=== PATIENT | female | born 1960 | race Caucasian/White ===

== ENCOUNTER 2017-06-02 16:19 | Emergency (ER) | payer SELFPAY ==
[2017-06-02] MEDS ORDERED: METHYLPREDNISOLONE PF 125MG/VIAL IVP ONE (16:44)
[2017-06-02] MEDS ORDERED: ALBUTEROL SULFATE (0.083%) 2.5 MG/3 ML NEB INH ONE ×2 (16:44→18:04)
[2017-06-02] MEDS ORDERED: IPRATROPIUM/ALBUTEROL (0.5MG/3MG) NEB INH ONE (16:44)
--- NOTE | 2017-06-02 16:49 | Emergency Department Record ---
History of Present Illness - General Chief Complaint: Difficulty Breathing Stated Complaint: ARNALDO AND HURNIA Time Seen by Provider: 06/02/17 16:39 Source: Patient Mode of Arrival: Wheelchair Limitations: No limitations - History of Present Illness Initial Comments: The patient is here due to having trouble breathing for about a month. She has been on multiple Abx's over that time with no improvement. Now the ARNALDO did worsen yesterday and she did develop a fever so she decided to come to the ER. She denies any CP except with coughing and also has had some sputum production. She was admitted to [facility] 6 weeks ago for a similar issue. Additionally she is having pain over her large abdominal wall hernia. MD Complaint: Cough, Shortness of breath Onset/Timin -: Days(s) Severity: Moderate Severity scale (1-10): 7 Quality: Aching Consistency: Constant Improves With: Nothing Known History Of: Asthma - Related Data Home Oxygen Therapy: No Home Medications Medication Instructions Recorded Confirmed Last Taken Albuterol Sulfate [Proair Hfa] 1 - 2 puff IH .EVERY 4-6 HOURS PRN 06/02/1706/0206/02/17 Allergies Allergy/AdvReac Type Severity Reaction Status Date / Time nabumetone [From RELAFEN] Allergy Unknown PT UNSURE Verified 06/02/17 16:35 OF REACTION Travel Screening - Travel/Exposure Within Last 30 Days Have you traveled within the last 30 days?: No - Travel/Exposure Within Last Year Have you traveled outside the [place] in the last year?: No - Additonal Travel Details Have you been exposed to anyone with a communicable illness?: No - Travel Symptoms Symptom Screening: None Review of Systems Constitutional: Reports: Fever, Malaise. Denies: Chills Eyes: Denies: Eye discharge ENT: Reports: Congestion Respiratory: Reports: Cough, Dyspnea. Denies: Hemoptysis Past Medical History - SOCIAL HISTORY Smoking Status: Current every day smoker Alcohol Use: None Drug Use: None - RESPIRATORY Hx Respiratory Disorders: Yes Hx Asthma: Yes Hx COPD: Yes - CARDIOVASCULAR Hx Cardio Disorders: Yes Hx Hypertension: Yes Hx Irregular Heartbeat: Yes Hx Palpitations: Yes - NEURO Hx Neuro Disorders: Yes Hx Neuropathy: Yes - GI Hx GI Disorders: Yes Comment:: large hernia - Hx Genitourinary Disorders: No - ENDOCRINE Hx Endocrine Disorders: Yes Hx Diabetes: No (pre-diabetic) - MUSCULOSKELETAL Hx Musculoskeletal Disorders: No - PSYCH Hx Psych Problems: Yes Hx Depression: Yes - HEMATOLOGY/ONCOLOGY Hx Hematology/Oncology Disorders: No Family Medical History Any Significant Family History?: Yes Hx Diabetes: Father, Mother, Grandparents Physical Exam - General General Appearance: Alert, Oriented x3, Cooperative, Mild distress - Head Head exam: Atraumatic, Normocephalic - Eye Eye exam: Normal appearance, PERRL - ENT Throat exam: Normal inspection. negative: Tonsillar erythema, Tonsillar exudate - Neck Neck exam: Normal inspection, Full ROM. negative: Tenderness - Respiratory Respiratory exam: Respiratory distress (mild.), Rhonchi, Wheezes. negative: Normal lung sounds bilaterally - Cardiovascular Cardiovascular Exam: Regular rate, Normal rhythm, Normal heart sounds - GI/Abdominal GI/Abdominal exam: Soft, Normal bowel sounds, Distended, Hernia (There is mild tenderness over her previous hernia.), Tenderness (mild over the chronic hernia. ). negative: Guarding, Rigid - Extremities Extremities exam: Normal inspection, Full ROM, Normal capillary refill. negative: Tenderness Course Vital Signs 06/02/17 16:22 Temperature 99.6 F Pulse Rate 78 Respiratory 28 H Rate Blood Pressure 173/87 Pulse Ox 82 L - Reevaluation(s) Reevaluation #1: The patient is doing better at this time. She is still having significant wheezing on exam but her aeration is improved. I did explain to her that I am concerned about her breathing and believe she needs to be admitted to the hospital. Due to the fact she has significant COPD and also a possible incarcerated abdominal wall hernia I also believe she will need to see General Surgery which we do not have here at [facility]. The patient is requesting to go to [facility]. I did discuss the case with Dr. Simmons who is the attending physician [employer] [facility] for [facility] and he does accept the patient to the hospital. 06/02/17 17:47 Medical Decision Making - Data Complexity MDM Data: Labs Ordered and/or Reviewed, X-Ray Ordered and/or Reviewed - Lab Data Result diagrams: 06/02/17 16:44 06/02/17 16:47 - Radiology Data Radiology results: Report reviewed (CXR: COPD with possible infiltrates lower lobes vs atelectasis.) Disposition Disposition: Transfer Clinical Impression: COPD exacerbation Disposition: Acute Care Hospital Transfer Transfer To: [facility] Reason For Transfer: COPD Accepting Physician: Troy Time Discussed w/Accepting Physician: 17:51 Condition: (2) Stable Forms: Patient Portal Access Time of Disposition: 17:51 Quality - Quality Measures Quality Measures: N/A - Blood Pressure Screening View Details: Yes Does Patient Have Any of the Following: No Blood Pressure Classification: Pre-Hypertensive BP Reading Systolic Measurement: 173 Diastolic Measurement: 87 Screening for High Blood Pressure: < Pre-Hypertensive BP, F/U Documented > [ G8950] Pre-Hypertensive Follow-up Interventions: Referral to alternative/primary care provider.
[2017-06-02 16:55] LABS: BASO % 0.2 % (0-6); HEMATOCRIT 51.6 % (35.0-47.0); HEMOGLOBIN 16.6 gm/dl (11.6-16.0); LYMPH % 9.7 % (16-45); MEAN CELL VOLUME 97.2 fl (81-97); MEAN CORPUSCULAR HEMOGLOBIN 31.2 pg (27-33); MEAN CORPUSCULAR HGB CONC 32.2 g/dl (32-36); MEAN PLATELET VOLUME 9.9 fl (7.4-10.4); MONO % 1.9 % (0-9); PLATELET COUNT 287 K/uL (130-400); RED BLOOD COUNT 5.31 M/uL (3.80-5.40); RED CELL DISTRIBUTION WIDTH 14.6 % (11.5-14.5); WHITE BLOOD COUNT W/O DIFF 12.3 K/uL (4.2-12.2)
[2017-06-02 17:10] LABS: BLOOD UREA NITROGEN 9 mg/dL (6-20); CREATININE 0.7 mg/dL (0.5-0.9); EST GLOMERULAR FILTRATION RATE > 60 mL/min
[2017-06-02 17:13] LABS: GLUCOSE,RANDOM 295 mg/dL (74-109)
[2017-06-02] MEDS ORDERED: LEVOFLOXACIN 500MG IVPB 500 MG/100 ML BAG IVPB ONE (17:43)
[2017-06-02] MEDS ORDERED: LEVOFLOXACIN 500MG IVPB 500 MG/100 ML BAG IVPB SCH (17:45)
--- NOTE | 2017-06-02 22:12 | RADIOLOGY REPORT ---
EXAM: CHEST 2 VIEWS HISTORY: DIFFICULTY IN BREATHING FOR TWO DAYS. SMOKING HISTORY. COPD. TECHNIQUE: Upright PA and lateral views of the chest. COMPARISON: None. FINDINGS: The heart is not enlarged. No gross pulmonary venous hypertension is seen. There is questionable mild reticular opacity prominence in the lower lungs , likely relating to chronic interstitial change rather than a more acute process, such as edema or interstitial pneumonitis. No lung consolidation, costophrenic angle blunting, or pneumothorax. The lungs are hyperinflated consistent with COPD. Mild degenerative changes are scattered within the visualized spine. IMPRESSION: 1. HYPERINFLATION OF THE LUNGS CONSISTENT WITH COPD. 2. MILD RETICULAR OPACITY PROMINENCE IN THE LOWER LUNGS QUESTIONED, DISCUSSED ABOVE. JOB NUMBER: [id number] MTDD
== END 2017-06-02 19:19 | disposition short-term general hospital (02) ==
LOC: ER 16:19
DX: J44.1 Chronic obstructive pulmonary disease with (acute) exacerbation (principal); K43.2 Incisional hernia without obstruction or gangrene; R06.02 Shortness of breath; I10 Essential (primary) hypertension; F17.210 Nicotine dependence, cigarettes, uncomplicated
CPT/HCPCS: 71020; 80048; 85027; 94640; 96365; 96375; 99285; J1956; J2930; J7613

== ENCOUNTER 2018-10-26 13:30 | Emergency (ER) | payer MEDICAID ==
[2018-10-26 14:14] LABS: URINE APPEARANCE CLOUDY; URINE BILIRUBIN NEGATIVE (NEGATIVE); URINE BLOOD LARGE (NEGATIVE); URINE COLOR YELLOW; URINE KETONE NEGATIVE (NEGATIVE); URINE LEUKOCYTE ESTERASE LARGE (NEGATIVE); URINE NITRITE NEGATIVE (NEGATIVE); URINE UROBILINOGEN 0.2 E.U./dL (0.20 - 1.00)
[2018-10-26 14:23] LABS: URINE BACTERIA NONE SEEN; URINE EPITHELIAL CELLS 0 - 2 (FEW); URINE RBC 16 - 25 (NONE SEEN)
--- NOTE | 2018-10-26 16:05 | Emergency Department Record ---
History of Present Illness - General Chief complaint: Female Urogenital Problem Stated complaint: POSSD UTI Time Seen by Provider: 10/26/18 16:01 Mode of Arrival: Ambulatory - History of Present Illness Onset/Timin -: Week(s) Location: Suprapubic Severity scale (1-10): 6 Quality: Aching, Burning Consistency: Constant Improves with: None Worsens with: None - Related Data Home Medications Medication Instructions Recorded Confirmed Last Taken Furosemide [Lasix] 20 mg PO DAILY 10/26/18 10/26/18 Unknown Lisinopril/Hydrochlorothiazide 1 tab PO DAILY 10/26/18 10/26/18 Unknown [Lisinopril-Hctz 10-12.5 mg Tab] Metformin HCl 500 mg PO DAILY 10/26/18 10/26/18 Unknown Pregabalin [Lyrica] 200 mg PO DAILY 10/26/18 10/26/18 Unknown Previous Rx's Medication Instructions Recorded Sulfamethoxazole/Trimethoprim 1 tab PO BID #20 tab 10/26/18 [Bactrim Ds] Allergies Allergy/AdvReac Type Severity Reaction Status Date / Time nabumetone [From RELAFEN] Allergy Unknown PT UNSURE Verified 10/26/18 13:40 OF REACTION Travel Screening - Travel/Exposure Within Last 30 Days Have you traveled within the last 30 days?: No Review of Systems Reviewed: No additional complaints except as noted below Constitutional: Reports: As per HPI. Denies: Chills, Fever, Malaise, Night sweats, Weakness, Weight change Eyes: Reports: As per HPI. Denies: Eye discharge, Eye pain, Photophobia, Vision change ENT: Reports: As per HPI. Denies: Congestion, Dental pain, Ear pain, Epistaxis , Hearing loss, Throat pain Respiratory: Reports: As per HPI. Denies: Cough, Dyspnea, Hemoptysis, Stridor, Wheezes Cardiovascular: Reports: As per HPI. Denies: Arrhythmia, Chest pain, Dyspnea on exertion, Edema, Murmurs, Orthopnea, Palpitations, Paroxysmal nocturnal dyspnea, Rheumatic Fever, Syncope Endocrine: Reports: As per HPI. Denies: Fatigue, Heat or cold intolerance, Polydipsia, Polyuria Gastrointestinal: Reports: As per HPI. Denies: Abdominal pain, Constipation, Diarrhea, Hematemesis, Hematochezia, Melena, Nausea, Vomiting Genitourinary: Reports: As per HPI, Dysuria, Frequency. Denies: Abnormal menses , Discharge, Dyspareunia, Hematuria, Incontinence, Retention, Urgency Musculoskeletal: Reports: As per HPI. Denies: Arthralgia, Back pain, Gout, Joint swelling, Myalgia, Neck pain Skin: Reports: As per HPI. Denies: Bruising, Change in color, Change in hair/ nails, Lesions, Pruritus, Rash Neurological: Reports: As per HPI. Denies: Abnormal gait, Confusion, Headache, Numbness, Paresthesias, Seizure, Tingling, Tremors, Vertigo, Weakness Psychiatric: Reports: As per HPI. Denies: Anxiety, Auditory hallucinations, Depression, Homicidal thoughts, Suicidal thoughts, Visual hallucinations Hematological/Lymphatic: Reports: As per HPI. Denies: Anemia, Blood Clots, Easy bleeding, Easy bruising, Swollen glands Past Medical History - SOCIAL HISTORY Smoking Status: Current every day smoker Alcohol Use: None Drug Use: None - RESPIRATORY Hx Respiratory Disorders: Yes Hx Asthma: Yes Hx COPD: Yes - CARDIOVASCULAR Hx Cardio Disorders: Yes Hx Hypertension: Yes Hx Irregular Heartbeat: Yes Hx Palpitations: Yes - NEURO Hx Neuro Disorders: Yes Hx Neuropathy: Yes - GI Hx GI Disorders: Yes Comment:: large hernia - Hx Genitourinary Disorders: No - ENDOCRINE Hx Endocrine Disorders: Yes Hx Diabetes: No (pre-diabetic) - MUSCULOSKELETAL Hx Musculoskeletal Disorders: No - PSYCH Hx Psych Problems: Yes Hx Depression: Yes - HEMATOLOGY/ONCOLOGY Hx Hematology/Oncology Disorders: No Family Medical History Any Significant Family History?: Yes Hx Diabetes: Father, Mother, Grandparents Physical Exam - General General Appearance: Alert, Oriented x3, Cooperative, No acute distress - Head Head exam: Normal inspection - Eye Eye exam: Normal appearance, PERRL Pupils: Normal accommodation - ENT ENT exam: Normal exam, Mucous membranes moist, Normal external ear exam, Normal orophraynx, TM's normal bilaterally Ear exam: Normal external inspection. negative: External canal tenderness Nasal Exam: Normal inspection. negative: Discharge, Sinus tenderness Mouth exam: Normal external inspection, Tongue normal Teeth exam: Normal inspection. negative: Dental caries Throat exam: Normal inspection. negative: Tonsillar erythema, Tonsillar exudate - Neck Neck exam: Normal inspection, Full ROM. negative: Tenderness - Respiratory Respiratory exam: Normal lung sounds bilaterally. negative: Respiratory distress - Cardiovascular Cardiovascular Exam: Regular rate, Normal rhythm, Normal heart sounds - GI/Abdominal GI/Abdominal exam: Soft, Normal bowel sounds. negative: Tenderness - Rectal Rectal exam: Deferred - exam: Deferred - Extremities Extremities exam: Normal inspection, Full ROM, Normal capillary refill. negative: Tenderness - Back Back exam: Reports: Normal inspection, Full ROM. Denies: Muscle spasm, Rash noted, Tenderness - Neurological Neurological exam: Alert, Normal gait, Oriented X3, Reflexes normal - Psychiatric Psychiatric exam: Normal affect, Normal mood - Skin Skin exam: Dry, Intact, Normal color, Warm Course Vital Signs 10/26/18 13:37 Temperature 97.7 F Pulse Rate 100 H Respiratory 20 Rate Blood Pressure 146/96 Pulse Ox 97 Medical Decision Making - Lab Data Lab Results 10/26/18 Range/Units 14:04 Urine Color Yellow Urine Appearance Cloudy Urine pH 6.0 (5.0-8.0) Ur Specific [place] 1.025 (1.002-1.030) Urine Protein 100 mg/dl H (NEGATIVE) Urine Glucose (UA) 500 mg/dl H (NEGATIVE) Urine Ketones Negative (NEGATIVE) Urine Blood Large H (NEGATIVE) Urine Nitrite Negative (NEGATIVE) Urine Bilirubin Negative (NEGATIVE) Urine Urobilinogen 0.2 (0.20 - 1.00) E.U./dL Ur Leukocyte Esterase Large H (NEGATIVE) Urine RBC 16 - 25 (NONE SEEN) Urine WBC Too numerous to cnt (0-2/hpf) Ur Epithelial Cells 0 - 2 (FEW) Urine Bacteria None seen Disposition Clinical Impression: UTI (urinary tract infection) Qualifiers: Urinary tract infection type: acute cystitis Hematuria presence: without hematuria Qualified Code(s): N30.00 - Acute cystitis without hematuria Disposition: Home, Self-Care Condition: (1) Good Instructions: Urinary Tract Infection in Women (ED) Additional Instructions: follow up with Family Dr in 4 days sooner if worse Prescriptions: Sulfamethoxazole/Trimethoprim [Bactrim Ds] 1 tab PO BID #20 tab Forms: Patient Portal Access Time of Disposition: 16:08 Quality - Quality Measures Quality Measures: N/A - Blood Pressure Screening Does Patient Have Any of the Following: No Blood Pressure Classification: Hypertensive Reading Systolic Measurement: 146 Diastolic Measurement: 96 Screening for High Blood Pressure: < Pre-Hypertensive BP, F/U Documented > [ G8950] Pre-Hypertensive Follow-up Interventions: Referral to alternative/primary care provider.
== END 2018-10-26 16:15 | disposition home or self-care (01) ==
LOC: ER 13:30
DX: N30.00 Acute cystitis without hematuria (principal); R11.0 Nausea; I10 Essential (primary) hypertension; F17.210 Nicotine dependence, cigarettes, uncomplicated
CPT/HCPCS: 81001; 99282; 99283

== ENCOUNTER 2019-02-05 19:51 | Emergency (ER) | payer MEDICAID ==
--- NOTE | 2019-02-05 20:06 | Emergency Department Record ---
History of Present Illness - General Chief complaint: ENT Stated complaint: SPOTS ON THROAT,POSSIBLE BLADDER INFECTION Time Seen by Provider: 02/05/19 19:55 Source: Patient - History of Present Illness Initial comments: The patient states that 2 weeks ago she developed a sore throat. The following day she developed dysuria. She began taking a ZPack as directed which she had on hand and finished yesterday. She had slight relief of her sore throat but now it is worse again today. The patient has multiple medical problems for which she seems to be noncompliant. She smokes regularly despite having a biox of 88-92 on RA. Her PCP has given her nebulizers, oxygen for home, and inhalers which she does not use, "because she doesn't like to." She states she is prediabetic, and has a pneumonia history but is refusing nebulizers, blood work, or work up for it. MD complaint: Sore throat - Related Data Previous Rx's Medication Instructions Recorded Cephalexin [Keflex] 500 mg PO QID #39 cap 02/05/19 Allergies Allergy/AdvReac Type Severity Reaction Status Date / Time nabumetone [From RELAFEN] Allergy Unknown PT UNSURE Verified 02/05/19 19:58 OF REACTION Review of Systems Reviewed: No additional complaints except as noted below Constitutional: Reports: As per HPI. Denies: Chills, Fever, Malaise, Night sweats, Weakness, Weight change Eyes: Reports: As per HPI. Denies: Eye discharge, Eye pain, Photophobia, Vision change ENT: Reports: As per HPI. Denies: Congestion, Dental pain, Ear pain, Epistaxis, Hearing loss, Throat pain Respiratory: Reports: As per HPI. Denies: Cough, Dyspnea, Hemoptysis, Stridor, Wheezes Cardiovascular: Reports: As per HPI. Denies: Arrhythmia, Chest pain, Dyspnea on exertion, Edema, Murmurs, Orthopnea, Palpitations, Paroxysmal nocturnal dyspnea, Rheumatic Fever, Syncope Endocrine: Reports: As per HPI. Denies: Fatigue, Heat or cold intolerance, Polydipsia, Polyuria Gastrointestinal: Reports: As per HPI. Denies: Abdominal pain, Constipation, Diarrhea, Hematemesis, Hematochezia, Melena, Nausea, Vomiting Genitourinary: Reports: As per HPI. Denies: Abnormal menses, Discharge, Dyspareunia, Dysuria, Frequency, Hematuria, Incontinence, Retention, Urgency Musculoskeletal: Reports: As per HPI. Denies: Arthralgia, Back pain, Gout, Joint swelling, Myalgia, Neck pain Skin: Reports: As per HPI. Denies: Bruising, Change in color, Change in hair/nails, Lesions, Pruritus, Rash Neurological: Reports: As per HPI. Denies: Abnormal gait, Confusion, Headache, Numbness, Paresthesias, Seizure, Tingling, Tremors, Vertigo, Weakness Psychiatric: Reports: As per HPI. Denies: Anxiety, Auditory hallucinations, Depression, Homicidal thoughts, Suicidal thoughts, Visual hallucinations Hematological/Lymphatic: Reports: As per HPI. Denies: Anemia, Blood Clots, Easy bleeding, Easy bruising, Swollen glands Past Medical History - SOCIAL HISTORY Smoking Status: Current every day smoker Drug Use: None - RESPIRATORY Hx Respiratory Disorders: Yes Hx Asthma: Yes Hx COPD: Yes - CARDIOVASCULAR Hx Cardio Disorders: Yes Hx Hypertension: Yes Hx Irregular Heartbeat: Yes Hx Palpitations: Yes - NEURO Hx Neuro Disorders: Yes Hx Neuropathy: Yes - GI Hx GI Disorders: Yes Comment:: large hernia - Hx Genitourinary Disorders: No - ENDOCRINE Hx Endocrine Disorders: Yes Hx Diabetes: No (pre-diabetic) - MUSCULOSKELETAL Hx Musculoskeletal Disorders: No - PSYCH Hx Psych Problems: Yes Hx Depression: Yes - HEMATOLOGY/ONCOLOGY Hx Hematology/Oncology Disorders: No Family Medical History Hx Diabetes: Father, Mother, Grandparents Physical Exam - General General Appearance: Alert, Oriented x3, Cooperative, No acute distress - Head Head exam: Normal inspection - Eye Eye exam: Normal appearance, PERRL, EOMI. negative: Conjunctival injection, Nystagmus Pupils: Normal accommodation - ENT ENT exam: Normal exam, Mucous membranes moist, Normal external ear exam, Normal orophraynx, TM's normal bilaterally Ear exam: Normal external inspection. negative: External canal tenderness Nasal Exam: Normal inspection. negative: Discharge, Sinus tenderness Mouth exam: Normal external inspection, Tongue normal Teeth exam: Normal inspection. negative: Dental caries Throat exam: Normal inspection. negative: Tonsillar erythema, Tonsillar exudate - Neck Neck exam: Normal inspection, Full ROM. negative: Lymphadenopathy, Meningismus, Tenderness - Respiratory Respiratory exam: Decreased breath sounds, Prolonged expiratory, Rhonchi, Wheezes. negative: Rales, Respiratory distress, Stridor, Other - Cardiovascular Cardiovascular Exam: Regular rate, Normal rhythm, Normal heart sounds - GI/Abdominal GI/Abdominal exam: Soft, Normal bowel sounds, Other (obese abdomen with pannus and hernia which is not incarcerated). negative: Rebound, Rigid, Tenderness - Rectal Rectal exam: Deferred - exam: Deferred - Extremities Extremities exam: Normal inspection, Full ROM, Normal capillary refill. negative: Calf tenderness, Pedal edema, Tenderness - Back Back exam: Reports: Normal inspection, Full ROM. Denies: Muscle spasm, Rash noted, Tenderness - Neurological Neurological exam: Alert, CN II-XII intact, Normal gait, Oriented X3, Reflexes normal. negative: Motor sensory deficit - Psychiatric Psychiatric exam: Normal affect, Normal mood - Skin Skin exam: Dry, Intact, Normal color, Warm Disposition Disposition: Discharge Clinical Impression: UTI (urinary tract infection) Qualifiers: Urinary tract infection type: acute cystitis Hematuria presence: with hematuria Qualified Code(s): N30.01 - Acute cystitis with hematuria Acute pharyngitis Qualifiers: Pharyngitis/tonsillitis etiology: unspecified etiology Qualified Code(s): J02.9 - Acute pharyngitis, unspecified Disposition: Home, Self-Care Condition: (1) Good Instructions: Urinary Tract Infection in Women (ED) Additional Instructions: Keflex as directed until gone. Call PCP in AM for follow up appointment for recheck of multiple concerns: 'pre'diabetes, COPD, UTI, pharyngitis. Drink water instead of Red Bull. Take your medications as directed. Have PCP help you with smoking cessation. Prescriptions: Cephalexin [Keflex] 500 mg PO QID #39 cap Forms: Patient Portal Access Quality - Quality Measures Quality Measures: N/A - Blood Pressure Screening Does Patient Have Any of the Following: No Blood Pressure Classification: Pre-Hypertensive BP Reading Systolic Measurement: 143 Diastolic Measurement: 83 Screening for High Blood Pressure: < Pre-Hypertensive BP, F/U Documented > [G8950] Pre-Hypertensive Follow-up Interventions: Follow-up with rescreen every year.
[2019-02-05 20:10] LABS: URINE APPEARANCE CLOUDY; URINE BILIRUBIN NEGATIVE (NEGATIVE); URINE BLOOD LARGE (NEGATIVE); URINE COLOR YELLOW; URINE KETONE NEGATIVE (NEGATIVE); URINE LEUKOCYTE ESTERASE SMALL (NEGATIVE); URINE NITRITE NEGATIVE (NEGATIVE); URINE UROBILINOGEN 0.2 E.U./dL (0.20 - 1.00)
[2019-02-05 20:16] LABS: URINE GLUCOSE (UA) >=1000 mg/dL (NEGATIVE); URINE PROTEIN 300 mg/dL (NEGATIVE)
[2019-02-05 20:17] LABS: URINE BACTERIA 1+; URINE RBC 21 - 35 (NONE SEEN); URINE WBC 16 - 20 (0-2/hpf)
[2019-02-05] MEDS ORDERED: CEPHALEXIN 500 MG CAPSULE PO STA (20:34)
== END 2019-02-05 20:54 | disposition home or self-care (01) ==
LOC: ER 19:51
DX: N30.01 Acute cystitis with hematuria (principal); J02.9 Acute pharyngitis, unspecified; J44.9 Chronic obstructive pulmonary disease, unspecified; I10 Essential (primary) hypertension; F17.210 Nicotine dependence, cigarettes, uncomplicated
CPT/HCPCS: 81001; 87880; 99283

== ENCOUNTER 2019-02-11 00:29 | Emergency (ER) | payer MEDICAID ==
[2019-02-11] MEDS ORDERED: ONDANSETRON HCL IV 4 MG/2 ML VIAL IV ONE (00:49)
[2019-02-11] MEDS ORDERED: 0.9 % SODIUM CHLORIDE 1,000 ML BAG IV ONE (00:49)
[2019-02-11 01:22] LABS: ABSOLUTE NEUTROPHIL COUNT 9.35; BASO % 0.2 % (0-6); EOS % 2.4 % (0-6); GRAN % 73.6 % (47-80); HEMATOCRIT 52.9 % (35.0-47.0); HEMOGLOBIN 17.8 gm/dl (11.6-16.0); LYMPH % 18.5 % (16-45); MEAN CELL VOLUME 92.2 fl (81-97); MEAN CORPUSCULAR HGB CONC 33.6 g/dl (32-36); MEAN PLATELET VOLUME 11.3 fl (7.4-10.4); MONO % 5.3 % (0-9); PLATELET COUNT 237 K/uL (130-400); RED BLOOD COUNT 5.74 M/uL (3.80-5.40); RED CELL DISTRIBUTION WIDTH 14.9 % (11.5-14.5); WHITE BLOOD COUNT W/O DIFF 12.7 K/uL (4.2-12.2)
[2019-02-11 01:40] LABS: BLOOD UREA NITROGEN 12 mg/dL (6-20); CREATININE 0.6 mg/dL (0.5-0.9); EST GLOMERULAR FILTRATION RATE > 60 mL/min; LIPASE 11 U/L (13-60); TOTAL PROTEIN 6.7 g/dL (6.6-8.7)
[2019-02-11 01:42] LABS: GLUCOSE,RANDOM 214 mg/dL (74-109)
[2019-02-11 01:45] LABS: ALB/GLOB RATIO 1.2 (1.1-1.8); ALBUMIN 3.7 g/dL (4.0-5.0); ALKALINE PHOSPHATASE 129 U/L (35-104); ALT/SGPT 46 U/L (<33); AST/SGOT 31 U/L (10.0-35.0)
--- NOTE | 2019-02-11 01:57 | Emergency Department Record ---
History of Present Illness - General Chief Complaint: Abdominal Pain Stated Complaint: ABDDOMINAL PAIN Time Seen by Provider: 02/11/19 00:33 Source: Patient Mode of Arrival: Wheelchair Limitations: No limitations - History of Present Illness Initial Comments: pt has had ap since sat. last bm was sunday. she feels she has an incarcerated hernia. she has hx of hernia. she is currently homeless and has not been wearing her rxd oxygen MD Complaint: Abdominal pain Onset/Timin -: Days(s) Location: RLQ Severity: Moderate Severity scale (1-10): 10 Quality: Burning, Cramping, Fullness, Sharp, Stabbing Consistency: Constant, Intermittent Improves With: Nothing Worsens With: Nothing Associated Symptoms: Nausea - Related Data Patient : No Previous Rx's Medication Instructions Recorded Cephalexin [Keflex] 500 mg PO QID #39 cap 02/05/19 Allergies Allergy/AdvReac Type Severity Reaction Status Date / Time nabumetone [From RELAFEN] Allergy Unknown PT UNSURE Verified 02/11/19 00:40 OF REACTION Travel Screening - Travel/Exposure Within Last 30 Days Have you traveled within the last 30 days?: No - Travel/Exposure Within Last Year Have you traveled outside the [place] in the last year?: No - Additonal Travel Details Have you been exposed to anyone with a communicable illness?: No - Travel Symptoms Symptom Screening: None Review of Systems Reviewed: No additional complaints except as noted below Constitutional: Reports: As per HPI. Denies: Chills, Fever, Malaise, Night sweats, Weakness, Weight change Eyes: Reports: As per HPI. Denies: Eye discharge, Eye pain, Photophobia, Vision change ENT: Reports: As per HPI. Denies: Congestion, Dental pain, Ear pain, Epistaxis, Hearing loss, Throat pain Respiratory: Reports: As per HPI. Denies: Cough, Dyspnea, Hemoptysis, Stridor, Wheezes Cardiovascular: Reports: As per HPI. Denies: Arrhythmia, Chest pain, Dyspnea on exertion, Edema, Murmurs, Orthopnea, Palpitations, Paroxysmal nocturnal dyspnea, Rheumatic Fever, Syncope Endocrine: Reports: As per HPI. Denies: Fatigue, Heat or cold intolerance, Polydipsia, Polyuria Gastrointestinal: Reports: As per HPI, Abdominal pain, Nausea. Denies: Constipation, Diarrhea, Hematemesis, Hematochezia, Melena, Vomiting Genitourinary: Reports: As per HPI. Denies: Abnormal menses, Discharge, Dyspareunia, Dysuria, Frequency, Hematuria, Incontinence, Retention, Urgency Musculoskeletal: Reports: As per HPI. Denies: Arthralgia, Back pain, Gout, Joint swelling, Myalgia, Neck pain Skin: Reports: As per HPI. Denies: Bruising, Change in color, Change in hair/nails, Lesions, Pruritus, Rash Neurological: Reports: As per HPI. Denies: Abnormal gait, Confusion, Headache, Numbness, Paresthesias, Seizure, Tingling, Tremors, Vertigo, Weakness Psychiatric: Reports: As per HPI. Denies: Anxiety, Auditory hallucinations, Depression, Homicidal thoughts, Suicidal thoughts, Visual hallucinations Hematological/Lymphatic: Reports: As per HPI. Denies: Anemia, Blood Clots, Easy bleeding, Easy bruising, Swollen glands Past Medical History - SOCIAL HISTORY Smoking Status: Current every day smoker Alcohol Use: Rare Drug Use: None - RESPIRATORY Hx Respiratory Disorders: Yes Hx Asthma: Yes Hx COPD: Yes Comment:: Home O2 PRN - CARDIOVASCULAR Hx Cardio Disorders: Yes Hx Hypertension: Yes Hx Irregular Heartbeat: Yes Hx Palpitations: Yes - NEURO Hx Neuro Disorders: Yes Hx Neuropathy: Yes - GI Hx GI Disorders: Yes Comment:: large hernia - Hx Genitourinary Disorders: No - ENDOCRINE Hx Endocrine Disorders: Yes Hx Diabetes: No (pre-diabetic) - MUSCULOSKELETAL Hx Musculoskeletal Disorders: No - PSYCH Hx Psych Problems: Yes Hx Depression: Yes - HEMATOLOGY/ONCOLOGY Hx Hematology/Oncology Disorders: No Family Medical History Any Significant Family History?: Yes Hx Diabetes: Father, Mother, Grandparents Physical Exam - General General Appearance: Alert, Oriented x3, Cooperative, Mild distress - Head Head exam: Normal inspection - Eye Eye exam: Normal appearance, PERRL, EOMI Pupils: Normal accommodation - ENT ENT exam: Normal exam, Mucous membranes moist, Normal external ear exam, Normal orophraynx Ear exam: Normal external inspection. negative: External canal tenderness Nasal Exam: Normal inspection. negative: Discharge, Sinus tenderness Mouth exam: Normal external inspection, Tongue normal Teeth exam: Normal inspection. negative: Dental caries Throat exam: Normal inspection. negative: Tonsillar erythema, Tonsillar exudate - Neck Neck exam: Normal inspection, Full ROM. negative: Tenderness - Respiratory Respiratory exam: Normal lung sounds bilaterally. negative: Respiratory distress - Cardiovascular Cardiovascular Exam: Regular rate, Normal rhythm, Normal heart sounds - GI/Abdominal GI/Abdominal exam: Soft, Normal bowel sounds, Distended, Guarding, Hernia, Tenderness - Rectal Rectal exam: Deferred - exam: Deferred - Extremities Extremities exam: Normal inspection, Full ROM, Normal capillary refill. negative: Tenderness - Back Back exam: Reports: Normal inspection, Full ROM. Denies: Muscle spasm, Rash noted, Tenderness - Neurological Neurological exam: Alert, CN II-XII intact, Normal gait, Oriented X3 - Psychiatric Psychiatric exam: Normal affect, Normal mood - Skin Skin exam: Dry, Intact, Normal color, Warm Course Vital Signs 02/11/19 00:31 Temperature 98.5 F Pulse Rate 99 H Respiratory 24 Rate Blood Pressure 183/104 Pulse Ox 85 L - Reevaluation(s) Reevaluation #1: 02/11/19 03:37 pt has seen [facility] before Reevaluation #2: 02/11/19 03:38 ct shows sbo Reevaluation #3: 02/11/19 05:04 attempted to reach surgery for 90 minutes. called [facility] er and dr pina accepted pt. Reevaluation #4: 02/11/19 05:08 d/w dr kim, surgery Medical Decision Making - Lab Data Result diagrams: 02/11/19 01:00 02/11/19 01:00 Lab Results 02/11/19 02/11/19 02/11/19 Range/Units 01:00 01:00 01:00 WBC 12.7 H (4.2-12.2) K/uL RBC 5.74 H (3.80-5.40) M/uL Hgb 17.8 H (11.6-16.0) gm/dl Hct 52.9 H (35.0-47.0) % MCV 92.2 (81-97) fl MCH 31.0 (27-33) pg MCHC 33.6 (32-36) g/dl RDW 14.9 H (11.5-14.5) % Plt Count 237 (130-400) K/uL MPV 11.3 H (7.4-10.4) fl Gran % 73.6 (47-80) % Lymphocytes % 18.5 (16-45) % Monocytes % 5.3 (0-9) % Eosinophils % 2.4 (0-6) % Basophils % 0.2 (0-6) % Absolute Neutrophils 9.35 Sodium 141 (136-145) mmol/L Potassium 4.0 (3.4-4.5) mmol/L Chloride 98 (98-107) mmol/L Carbon Dioxide 31.0 H (22-29) mmol/L Anion Gap 12.0 (7-16) BUN 12 (6-20) mg/dL Creatinine 0.6 (0.5-0.9) mg/dL Estimated GFR > 60 mL/min Random Glucose 214 H (74-109) mg/dL Lactic Acid 1.4 (0.5-2.2) mmol/L Calcium 9.2 (8.6-10.0) mg/dL Total Bilirubin 1.00 (0.2-1.0) mg/dL AST 31 (10.0-35.0) U/L ALT 46 H (<33) U/L Alkaline Phosphatase 129 H (35-104) U/L Total Protein 6.7 (6.6-8.7) g/dL Albumin 3.7 L (4.0-5.0) g/dL Globulin 3.0 (1.4-4.8) gm/dL Albumin/Globulin Ratio 1.2 (1.1-1.8) Lipase 11 L (13-60) U/L Disposition Disposition: Transfer Clinical Impression: SBO (small bowel obstruction) Disposition: Acute Care Hospital Transfer Transfer To: [facility] Reason For Transfer: sbo Accepting Physician: dr pina Time Discussed w/Accepting Physician: 05:04 Forms: Patient Portal Access Quality - Quality Measures Quality Measures: N/A - Blood Pressure Screening Does Patient Have Any of the Following: Active Dx of HTN Blood Pressure Classification: Hypertensive Reading Systolic Measurement: 183 Diastolic Measurement: 104 Screening for High Blood Pressure: Patient Exclusion, Hx of HTN [G9744]
[2019-02-11 03:05] LABS: URINE APPEARANCE CLEAR; URINE BILIRUBIN SMALL (NEGATIVE); URINE BLOOD NEGATIVE (NEGATIVE); URINE COLOR YELLOW; URINE KETONE NEGATIVE (NEGATIVE); URINE LEUKOCYTE ESTERASE NEGATIVE (NEGATIVE); URINE NITRITE NEGATIVE (NEGATIVE); URINE PROTEIN NEGATIVE (NEGATIVE); URINE UROBILINOGEN >=8.0 E.U./dL (0.20 - 1.00)
[2019-02-11] MEDS ORDERED: HYDROMORPHONE HCL 2 MG/ML VIAL IVP ONE (04:39)
[2019-02-11] MEDS ORDERED: LIDOCAINE UROJECT 10 ML APPL MM ONE (05:14)
--- NOTE | 2019-02-11 11:27 | CT SCAN REPORT ---
EXAM: CT SCAN OF THE ABDOMEN AND PELVIS WITH CONTRAST HISTORY: RIGHT LOWER QUADRANT ABDOMINAL PAIN. TECHNIQUE: Standard CT imaging of the abdomen and pelvis was performed with intravenous contrast. 100 ml of Omnipaque 300 were administered. Comparison: None. FINDINGS: There is mild atelectasis or infiltrate at the left lung base. There is diffuse fatty infiltration of the liver. The gallbladder is surgically absent. The biliary tree, pancreas, spleen, and adrenal glands are normal. The kidneys and ureters are normal in appearance. The aorta is normal in caliber. There is no retroperitoneal lymphadenopathy. There is a large right lower quadrant ventral hernia containing loops of large and small bowel. There is associated fat stranding within the hernia sac. There is a small bowel obstruction with the point of transition noted at the opening of the hernia sac. The proximal small bowel loops are distended and filled with air and fluid. The small bowel loops measure up to 5 cm in diameter. There is no pneumoperitoneum. Mild ascites is present. The hernia sac measures 17.6 cm transverse x 12.4 cm AP x 13.6 cm in height. A smaller fat containing periumbilical hernia is also present. The distal bowel loops are decompressed. An IUD is in place within the uterus. There is a large intramural fibroid at the uterine fundus measuring approximately 9.2 cm in diameter. The adnexa appear normal. Note is made of a few scattered diverticula within the sigmoid colon with no evidence for acute diverticulitis. The urinary bladder is normal. Degenerative changes are present within the spine. IMPRESSION: 1. LARGE RIGHT LOWER QUADRANT VENTRAL HERNIA CONTAINING LOOPS OF LARGE AND SMALL BOWEL. THERE IS ASSOCIATED SMALL BOWEL OBSTRUCTION WITH THE POINT OF TRANSITION AT THE OPENING OF THE HERNIA SAC. THE PROXIMAL SMALL BOWEL LOOPS MEASURE UP TO 5 CM IN DIAMETER. 2. MILD ASCITES. 3. SIGMOID DIVERTICULOSIS WITH NO DIVERTICULITIS. 4. 9.2 CM INTRAMURAL FIBROID AT THE UTERINE FUNDUS. 5. DIFFUSE FATTY INFILTRATION OF THE LIVER. 6. MINOR ATELECTASIS OR INFILTRATE AT THE LEFT LUNG BASE. JOB NUMBER: [id number] [facility]
== END 2019-02-11 05:49 | disposition short-term general hospital (02) ==
LOC: ER 00:29
DX: K56.609 Unspecified intestinal obstruction, unspecified as to partial versus complete obstruction (principal); R10.31 Right lower quadrant pain; I10 Essential (primary) hypertension; Z99.81 Dependence on supplemental oxygen
CPT/HCPCS: 74177; 80053; 81003; 83605; 83690; 85025; 96374; 96375; 99285; J2405; J7030

== ENCOUNTER 2019-09-01 11:30 | Emergency (ER) | payer MEDICAID ==
[2019-09-01] MEDS ORDERED: METHYLPREDNISOLONE PF 125MG/VIAL IVP ONE (11:43)
[2019-09-01] MEDS ORDERED: IPRATROPIUM/ALBUTEROL (0.5MG/3MG) NEB INH ONE (11:43)
--- NOTE | 2019-09-01 11:47 | Emergency Department Record ---
History of Present Illness - General Chief Complaint: Difficulty Breathing Stated Complaint: ARNALDO Time Seen by Provider: 09/01/19 11:39 Source: Patient Mode of Arrival: Ambulatory Limitations: No limitations - History of Present Illness Initial Comments: The patient is here due to 3 days of cough and congestion with SOB. The patient has been coughing and having colored sputum. She also denies any CP, fever, chills, or back pain. The patient has a long hx of COPD and is supposed to be on home O2 and use a Nebulizer but due to being homeless now she does not have those things. MD Complaint: Cough, Shortness of breath Onset/Timin -: Days(s) Severity: Moderate Severity scale (1-10): 7 Quality: Aching Consistency: Constant, Intermittent Improves With: Nothing Worsens With: Nothing Known History Of: Aspiration pneumonia Associated Symptoms: Cough - Related Data Home Oxygen Therapy: Yes (PRN) Home Oxygen Amount: 2 Liters Previous Rx's Medication Instructions Recorded Albuterol Sulfate 0.083% [Neb] 3 ml NEB .EVERY 4-6 HOURS PRN #1 ml 09/01/19 [Albuterol Sulfate] Doxycycline Monohydrate [Mondoxyne 100 mg PO BID 7 Days #14 capsule 09/01/19 Nl] Metformin HCl 500 mg PO BID #14 tab 09/01/19 Allergies Allergy/AdvReac Type Severity Reaction Status Date / Time nabumetone [From RELAFEN] Allergy Unknown PT UNSURE Verified 09/01/19 11:39 OF REACTION Travel/Exposure Screening - Travel/Exposure Within Last 30 Days Have you traveled within the last 30 days?: No - Travel/Exposure Within Last Year Have you traveled outside the [place] in the last year?: No - Additonal Travel/Exposure Details Have you been exposed to anyone with a communicable illness?: No - Travel Symptoms Symptom Screening: None Review of Systems Constitutional: Denies: Chills, Fever Eyes: Denies: Eye discharge ENT: Reports: Congestion Respiratory: Reports: Cough, Dyspnea Cardiovascular: Denies: Chest pain Endocrine: Denies: Fatigue Gastrointestinal: Denies: Nausea Genitourinary: Denies: Dysuria Musculoskeletal: Denies: Arthralgia Neurological: Denies: Abnormal gait Past Medical History - SOCIAL HISTORY Smoking Status: Current every day smoker Alcohol Use: None Drug Use: None - RESPIRATORY Hx Respiratory Disorders: Yes Hx Asthma: Yes Hx COPD: Yes Comment:: Home O2 PRN - CARDIOVASCULAR Hx Cardio Disorders: Yes Hx Hypertension: Yes Hx Irregular Heartbeat: Yes Hx Palpitations: Yes - NEURO Hx Neuro Disorders: Yes Hx Neuropathy: Yes - GI Hx GI Disorders: Yes Comment:: large hernia - Hx Genitourinary Disorders: No - ENDOCRINE Hx Endocrine Disorders: Yes Hx Diabetes: No (pre-diabetic) - MUSCULOSKELETAL Hx Musculoskeletal Disorders: No - PSYCH Hx Psych Problems: Yes Hx Depression: Yes - HEMATOLOGY/ONCOLOGY Hx Hematology/Oncology Disorders: No Family Medical History Any Significant Family History?: Yes Hx Diabetes: Father, Mother, Grandparents Physical Exam - General General Appearance: Alert, Oriented x3, Cooperative, No acute distress - Head Head exam: Atraumatic, Normocephalic, Normal inspection - Eye Eye exam: Normal appearance, PERRL - ENT Throat exam: Normal inspection. negative: Tonsillar erythema, Tonsillar exudate - Neck Neck exam: Normal inspection, Full ROM. negative: Tenderness - Respiratory Respiratory exam: Wheezes (There are mild wheezes in the lower lobes.). negative: Normal lung sounds bilaterally, Accessory muscle use, Decreased breath sounds, Rales, Respiratory distress, Stridor - Cardiovascular Cardiovascular Exam: Regular rate, Normal rhythm, Normal heart sounds - GI/Abdominal GI/Abdominal exam: Soft, Normal bowel sounds. negative: Tenderness - Extremities Extremities exam: Normal inspection, Full ROM, Normal capillary refill. negative: Tenderness - Back Back exam: Denies: Vertebral tenderness - Neurological Neurological exam: Alert, Normal gait. negative: Abnormal gait, Motor sensory deficit Course Vital Signs 09/01/19 11:32 Temperature 97.9 F Pulse Rate 102 H Respiratory 26 H Rate Blood Pressure 198/104 Pulse Ox 92 L - Reevaluation(s) Reevaluation #1: The patient is doing a lot better at this time. She did just tell me she also has not been taking her Metformin. On exam her lungs are now clear with no wheezing and her O2 sats are stable and 94-98%. She feels much better and is ready for home. I did discuss the need to obtain her medicines which she states she can do. 09/01/19 13:05 Reevaluation #2: The patient states she has not been taking her Metformin. Her blood sugar is elevated so I did prescribe a week of her Metformin and did double it to BID. 03/02/20 13:13 Medical Decision Making - Data Complexity MDM Data: Labs Ordered and/or Reviewed, X-Ray Ordered and/or Reviewed - Lab Data Result diagrams: 09/01/19 12:05 09/01/19 12:05 - Radiology Data Radiology results: Report reviewed (CXR: Neg for any acute changes.) Disposition Disposition: Discharge Clinical Impression: COPD exacerbation Disposition: Home, Self-Care Condition: (2) Stable Instructions: Dyspnea (ED) Additional Instructions: Please continue to use the ALbuterol Neb tx's and restart your medicines. Please see your doctor on Sun as planned and return to the ER for any worsening issues. Prescriptions: Albuterol Sulfate 0.083% [Neb] [Albuterol Sulfate] 3 ml NEB .EVERY 4-6 HOURS PRN #1 ml PRN Reason: Difficulty In Breathing Metformin HCl 500 mg PO BID #14 tab Doxycycline Monohydrate [Mondoxyne Nl] 100 mg PO BID 7 Days #14 capsule Forms: Patient Portal Access Time of Disposition: 13:08 Quality - Quality Measures Quality Measures: N/A - Blood Pressure Screening View Details: Yes Does Patient Have Any of the Following: Active Dx of HTN Blood Pressure Classification: Hypertensive Reading Systolic Measurement: 198 Diastolic Measurement: 104 Screening for High Blood Pressure: Patient Exclusion, Hx of HTN [G9744]
[2019-09-01 12:15] LABS: ABSOLUTE NEUTROPHIL COUNT 6.46; BASO % 0.3 % (0-6); EOS % 3.1 % (0-6); GRAN % 70.4 % (47-80); HEMATOCRIT 49.1 % (35.0-47.0); HEMOGLOBIN 16.1 gm/dl (11.6-16.0); MEAN CELL VOLUME 94.2 fl (81-97); MEAN CORPUSCULAR HEMOGLOBIN 30.9 pg (27-33); MEAN CORPUSCULAR HGB CONC 32.8 g/dl (32-36); MEAN PLATELET VOLUME 10.3 fl (7.4-10.4); MONO % 4.2 % (0-9); PLATELET COUNT 204 K/uL (130-400); RED BLOOD COUNT 5.21 M/uL (3.80-5.40); RED CELL DISTRIBUTION WIDTH 14.9 % (11.5-14.5); WHITE BLOOD COUNT W/O DIFF 9.2 K/uL (4.2-12.2)
[2019-09-01 12:23] LABS: BLOOD UREA NITROGEN 10 mg/dL (6-20)
[2019-09-01 12:24] LABS: CREATININE 0.6 mg/dL (0.5-0.9); EST GLOMERULAR FILTRATION RATE > 60 mL/min; TOTAL PROTEIN 6.7 g/dL (6.6-8.7)
[2019-09-01 12:26] LABS: GLUCOSE,RANDOM 381 mg/dL (74-109)
[2019-09-01 12:29] LABS: ALB/GLOB RATIO 1.3 (1.1-1.8); ALBUMIN 3.8 g/dL (4.0-5.0); ALKALINE PHOSPHATASE 125 U/L (35-104); ALT/SGPT 28 U/L (<33); AST/SGOT 14 U/L (10.0-35.0)
--- NOTE | 2019-09-01 12:48 | RADIOLOGY REPORT ---
EXAMINATION: Two View Chest Radiographs EXAM DATE: 09/01/2019 12:42 PM TECHNIQUE: Frontal and lateral views INDICATION: cough. The technologist elicited the history: Shortness of breath, cough and history of COPD. COMPARISON: Chest radiographs, 09/06/2017. ENCOUNTER: Not applicable FINDINGS: The heart, mediastinum, and pulmonary vasculature are normal. Tortuosity of the aorta. Hyperinflation of the lung giron with left basilar scarring and mild tenting of the left hemidiaphragm, stable. No lung consolidation or pleural effusions are present. Small roughly vertebral body osteophytes. IMPRESSION: No focal pulmonary infiltrates or pleural effusions. Hyperinflation with left basilar scarring, stable. Atherosclerosis. Spondylosis. Dictated by: Prisca Deluca MD on 09/01/2019 12:45 PM. .
== END 2019-09-01 13:20 | disposition home or self-care (01) ==
LOC: ER 11:30
DX: J44.1 Chronic obstructive pulmonary disease with (acute) exacerbation (principal); I10 Essential (primary) hypertension; F17.210 Nicotine dependence, cigarettes, uncomplicated; Z59.0 Homelessness
CPT/HCPCS: 71046; 80053; 85025; 86140; 94640; 96374; 99284; J2930